=== PATIENT | female | born 1960 | race Hispanic/Latino ===

== ENCOUNTER 2018-01-07 18:00 | Emergency (ER) | payer OTHER ==
[2018-01-07] MEDS ORDERED: ACETAMINOPHEN 325 MG TAB ONE (19:56)
== END 2018-01-07 20:02 | disposition home or self-care (01) ==
LOC: EDH 18:00
DX: S43.491A Other sprain of right shoulder joint, initial encounter (principal); S00.83XA Contusion of other part of head, initial encounter; M54.5 Low back pain; I10 Essential (primary) hypertension; E11.9 Type 2 diabetes mellitus without complications; Z90.710 Acquired absence of both cervix and uterus; W01.0XXA Fall on same level from slipping, tripping and stumbling without subsequent striking against object, initial encounter; Y93.89 Activity, other specified; Y92.89 Other specified places as the place of occurrence of the external cause; Y99.8 Other external cause status
CPT/HCPCS: 70450; 72100; 73030